=== PATIENT | female | born 1970 | race Caucasian/White ===

== ENCOUNTER 2016-12-18 10:04 | Day surgery (SDC) | payer OTHER ==
--- NOTE | 2016-12-14 09:07 | PDGENHP ---
History and Physical - Chief Complaint Right Hip Pain - History of Present Illness 1. Bilateral~Femoroacetabular impingement (MANJU) Mixed type, with~resultant labral tear, Right symptomatic HISTORY OF PRESENT ILLNESS: Aimeeis a 46 y.o.~very ~active female~who I have had the pleasure to consult on today.~I have enjoyed meeting her. She~lives in [place]. ~Aimee works as a Field Administrator. ~She~is ; she~has step children. ~Aimee enjoys hiking, cross country skiing, cycling, swimming, snow shoeing, pilates. Arabella's right~hip pain started April 2014, with little~previous complaints ~and with no~recalled trauma or injury. Patient noted right plantar wart treatment and subsequent limping as a precursor to right hip pain. ~~Aimee does not have~a known history of hip dysplasia. Presentation today is of~anterior right~hip pain. ~The hip does~wake her~at night and does not~click and catch on her. Sitting can be uncomfortable for her. Aimeedoes~report suffering from intermittent lower back pain episodes, which increases with increased sitting. Aimeehas not~participated in physical therapy and has not~tried other conservative measures. She~has not~received sufficient symptomatic improvement. Aimeehas~utilized medication for pain management, including Mobic~( prescribed). Aimeehas used medication for 2-3 weeks. Aimeedenies issues with the left hip. ~ Aimeeunderstands that she~has a hip and pelvis problem which should be researched and wishes to get a better understanding of her~hip status, followed by an establishment of a treatment strategy, hoping sheGoranwould be able to get back to her~well being active life. History: Past medical history: ~ Hypothyroid Relevant familial history: Mother HBP & Hypothyroidism Past surgical history: No. 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 I have reviewed, verified and agree with the past medical, surgical, family and social history. Current Medications:~has a current medication list which includes the following prescription(s): cytomel. ALLERGIES:~is allergic to contrast and sulfa (sulfonamide antibiotics). Objective: Physical Examination: Aimeeis 5 feet 4~inches tall and weighs~125~Lbs. Aimeeis AAO x3; she~is well-nourished, in NAD. Skin is warm and dry. ~Breathing is non-labored. ~CV with RRR by pulse. Abdomen is soft, NTND. ~Currently, she~walks with a abnormal slightly antalgic~gait. She~has~left~1 cm short leg length discrepancy and presents~with mild~signs of joint laxity.~Beighton Score: ~2. ~~She~is fit looking. ~~ Trendelenburg sign is negative and proprioception~is normal, both~sides. Lower spine examination is negative~for sciatic or femoral nerve irritation with negative~SLR &~femoral stretch tests. Range of motion of the spine is normal~for flexion, extension, and rotations, with~associated mild pain while performing extension. SIJs examination is normal with normal~DEANNA in relation and local tenderness. Strength, Sensation and pulses are normal - bilaterally Ankles and knees exams are normal~and no~mal-alignment is evident. Hip ROM (degrees): ER At 90~hip FL IR At 90~hip FL IR Neutral hip ER Neutral hip AB AD FL EX R 40 0 30 30 45 15 105 5 L 45 10 35 25 45 10 105 5 Specific hip and pelvis tests: Quadrant DEANNA Roll Add. Longus R +++ +++ +++ + (Capsule & IP TTP) L + + Negative Negative Glut. Med ITB Pos. Imp R Negative Negative Negative L Negative Negative Negative Squeeze test measured weak. Bony Symphysis pubis is pain free to touch while concentric activity of the rectus abdominis, does not~produce pain at its insertion. Ilio Psos specific tests are negative. Greater trochanteric burse is pain free on both hips. Piriformis tests: FAIR is negative, with no local signs of neuritis related to sciatic nerve. Thigh circumference is symmetric with no evidence for muscle atrophy on both~ sides. Hamstrings tests are negative~functional contraction and negative~tendinopathy Imaging: Radiology studies which I~have personally reviewed, analyzed and measured are below: XR: AP of the hip and pelvis: Performed in a good~technique Coccyx to pubic symphysis distance 2 cm. 3 caudal Specific measurements show: NSA~ Lat. Cam LCE Lat. Pincer C.Over~sign Sharp's angle Head~Coverage % Sourcil~Angle ATDmm R N + 34 - ~~- 41 85 1 N L N + 33 - - 43 86 3 N [place]~Lines are preserved. No Pathological signs are seen in the Symphysis Pubis. No Pathological signs are seen at the Ischial~tuberosity. ~~~~~~~~~~~~~ Pos. wall sign Sup. Lat. OA Joint Space-WBZ Joint Space-Medial NAD R Negative Negative 4.1 mm 4.0 mm 17 mm L Negative Negative 3.5 mm 3.7 mm 16.3 mm Sclerosis ~~Dysplasia Cysts ISS Comments R Negative Negative + Negative L Negative Negative Negative Negative X Table lateral: Anterior cam lesion is seen Alpha angle: Quintana lateral Right 73 Left 60 MRI shows: Right femoral neck pitting cyst with good cartilage thickness and labral qaulity. Impression and plan:~ Aimeeis a 46 y.o.~active female~suffering from symptomatic right hip pain due to Right~Femoroacetabular impingement (MANJU) Cam type~causing significant disability to her~and altering~her~sport and life activities. Physical examination, imaging, and her~story correspond with the diagnosis mentioned above. I have explained the diagnosis and its significance to Aimeeand we have discussed the various possible treatment options~and their implications~with her. These include proceeding with conservative treatment while continuing to modify her~activities to avoid aggravating the hip further, resuming anti pain medications or intra articular injections (when needed) which can give temporary relief and a hip arthroscopy aiming to address the above pathology. Aimeewill review the info presented. Should Aimeedecide that surgery is the best option, prior to hip arthroscopy she~will need to obtain a CT with 3D recon in order to help us pre plan an accurate and optimal volume and location of bony resection. Aimeeis happy with this plan. I have also supplied her~with handouts, outlining the expected surgical treatment and rehab involved. I wish Aimeeall the best, ~~ Vicki Lam ATC~ [place] MD Arabella History Information - Allergies/Home Medication List Allergies/Adverse Reactions: morphine Allergy (Verified 11/23/16 13:49) Sulfa (Sulfonamide Antibiotics) Allergy (Verified 08/11/15 15:09) Rash injected dye contrast Allergy (Uncoded 08/11/15 15:09) Rash Home Medications: Levothyroxine [Synthroid] 88 mcg PO DAILY06 08/27/15 [Last Taken 08/27/15 04:45] Liothyronine Sodium [Cytomel 25 mcg (RX)] 25 mcg PO DAILY06 08/27/15 [Last Taken 08/27/15 04:45] Herbal Drugs DAILY 11/23/16 [Last Taken Unknown] I have personally reviewed and updated: medical history - Social History Smoking Status: Never smoked Review of Systems Review of Systems: Physical Exam Physical Exam:
[2016-12-18] MEDS ORDERED: PREGABALIN 150 MG CAP PO ONE (10:54)
[2016-12-18] MEDS ORDERED: ACETAMINOPHEN 500 MG TAB PO ONE (10:54)
[2016-12-18] MEDS ORDERED: ceFAZolin 2 GM/DEXTROSE 100 ML IV ONE (10:54)
[2016-12-18] MEDS ORDERED: LIDOCAINE 1% 2 ML INJ ID PRN (10:59)
[2016-12-18] MEDS ORDERED: PROPOFOL/EMULSION 500 MG/50 ML BOTTLE IV ONE (10:59)
[2016-12-18] MEDS ORDERED: PROPOFOL 200 MG/20 ML VIAL ONE (10:59)
[2016-12-18] MEDS ORDERED: LR 1,000 ML IV ONE (10:59)
[2016-12-18] MEDS ORDERED: MIDAZOLAM 2 MG/2 ML VIAL IVP ONE (11:01)
[2016-12-18] MEDS ORDERED: HYDROmorphONE/DILAUDID 2 MG/ML INJ ONE (11:03)
--- NOTE | 2016-12-18 11:03 | PDANEPAE ---
ANE History of Present Illness left hip arthroscopy, femoroplasty ANE Past Medical History - Cardiovascular History Hx Hypertension: No Hx Arrhythmias: No Hx Chest Pain: No Hx Coronary Artery / Peripheral Vascular Disease: No Hx CHF / Valvular Disease: No Hx Palpitations: No - Pulmonary History Hx COPD: No Hx Asthma/Reactive Airway Disease: No Hx Recent Upper Respiratory Infection: No Hx Oxygen in Use at Home: No Hx Sleep Apnea: No Sleep Apnea Screening Result - Last Documented: Negative - Neurologic History Hx Cerebrovascular Accident: No Hx Seizures: No Hx Dementia: No - Endocrine History Hx Diabetes: No Endocrine History Comment: HYPOTHYROID - Renal History Hx Renal Disorders: No - Liver History Hx Hepatic Disorders: No - Neurological & Psychiatric Hx Hx Neurological and Psychiatric Disorders: Yes Neurological / Psychiatric History Comment: DEPRESSION - Cancer History Hx Cancer: No - Congenital Disorder History Hx Congenital Disorders: No - GI History Hx Gastrointestinal Disorders: No - Other Health History Other Health History: LABRAL TEAR. L HIP PAIN - Chronic Pain History Chronic Pain: Yes (L HIP) - Surgical History Prior Surgeries: RT HIP SCOPE 08/2015. HYSTEROSCOPY 05/11/15. LT WRIST AND FOREARM NERVE DECOMPRESSION 2012. LT KNEE SCOPES. REMVL BENIGN TUMOR LT FEMUR ANE Review of Systems Review of systems is: negative Review of Systems: - Exercise capacity METS (RN): 4 METS ANE Patient History - Allergies Allergies/Adverse Reactions: morphine Allergy (Verified 11/23/16 13:49) Sulfa (Sulfonamide Antibiotics) Allergy (Verified 08/11/15 15:09) Rash injected dye contrast Allergy (Uncoded 08/11/15 15:09) Rash - Home Medications Home medications: home medication list seen and reviewed Home Medications: Levothyroxine [Synthroid] 88 mcg PO DAILY06 08/27/15 [Last Taken 08/27/15 04:45] Liothyronine Sodium [Cytomel 25 mcg (RX)] 25 mcg PO DAILY06 08/27/15 [Last Taken 08/27/15 04:45] Herbal Drugs DAILY 11/23/16 [Last Taken Unknown] - Anes Hx Anes Hx: post operative nausea - Smoking Hx Smoking Status: Never smoked ANE Labs/Vital Signs - Vital Signs Height: 162.56 cm Weight: 56.699 kg ANE Physical Exam - Airway Neck exam: FROM Mallampati Score: Class 1 Mouth exam: normal dental/mouth exam - Pulmonary Pulmonary: no respiratory distress - Cardiovascular Cardiovascular: regular rate and rhythym - ASA Status ASA Status: II ANE Anesthesia Plan Anesthesia Plan: general endotracheal anesthesia
[2016-12-18] MEDS ORDERED: ROCURONIUM 50 MG/5 ML VIAL ONE (11:04)
[2016-12-18] MEDS ORDERED: LIDOCAINE 2% 5 ML SDV ONE (11:04)
[2016-12-18] MEDS ORDERED: DEXAMETHASONE 4 MG/ML VIAL ONE (11:04)
[2016-12-18] MEDS ORDERED: BUPIVACAINE 0.25% 30 ML SDV ONE (11:11)
[2016-12-18] MEDS ORDERED: SCOPOLAMINE HYDROBROMIDE 1 MG/3 DAYS PATCH TD SCH (11:15)
[2016-12-18] MEDS ORDERED: ONDANSETRON 4 MG/2 ML VIAL ONE (12:17)
[2016-12-18] MEDS ORDERED: SUGAMMADEX SODIUM 200 MG/2 ML VIAL IVP ONE (12:17)
[2016-12-18] MEDS ORDERED: OXYCODONE/APAP 5/325 TAB PO PRN (13:22)
[2016-12-18] MEDS ORDERED: fentaNYL 100 MCG/2 ML INJ IVP PRN (13:22)
[2016-12-18] MEDS ORDERED: PROMETHAZINE HCL 25 MG/ML INJ IVP PRN (13:22)
[2016-12-18] MEDS ORDERED: ONDANSETRON 4 MG/2 ML VIAL IVP PRN (13:22)
[2016-12-18] MEDS ORDERED: HYDROmorphONE/DILAUDID 1 MG/ML INJ IVP PRN (13:22)
[2016-12-18] MEDS ORDERED: ACETAMINOPHEN 500 MG TAB PO PRN (13:22)
[2016-12-18] MEDS ORDERED: NALOXONE HCL 0.4 MG/ML INJ IVP PRN (13:22)
[2016-12-18] MEDS ORDERED: LR 500 ML IV PRN (13:22)
[2016-12-18] MEDS ORDERED: METOCLOPRAMIDE 10 MG/2 ML VIAL IVP PRN (13:22)
--- NOTE | 2016-12-18 14:42 | POSTANESTH ---
Post Anesthetic Evaluation Cardiovascular Status: Normal, Stable Respiratory Status: Normal, Stable Level of Consciousness/Mental Status: Can Participate in Eval Pain Control: Adequate, Prn Tx Ordered Nausea/Vomiting Control: Adequate, Prn Tx Ordered Complications Possibly Related to Anesthesia: None Noted
[2016-12-18 14:49] VITALS: PULSE 100
[2016-12-18 15:54] VITALS: RESP 17; TEMP 97
[2016-12-18 17:42] VITALS: BP 122/80
[2016-12-18 17:44] VITALS: O2SAT 95
[2016-12-19] MEDS ORDERED: PATCH REMOVAL 1 EA PATCH TD ONE (11:01)
== END 2016-12-18 17:40 | disposition home or self-care (01) ==
LOC: FSGY 10:04
PROVIDERS: ATTEND Orthopaedic Surgery Sports Medicine
PROC: 0SBB4ZZ Excision of Left Hip Joint, Percutaneous Endoscopic Approach (ICD-10-PCS; principal; 2016-12-18 11:45)
PROC: 0SQB4ZZ Repair Left Hip Joint, Percutaneous Endoscopic Approach (ICD-10-PCS; principal; 2016-12-18 11:45)
DX: M25.852 Other specified joint disorders, left hip (principal); S73.192A Other sprain of left hip, initial encounter; M94.252 Chondromalacia, left hip; M16.12 Unilateral primary osteoarthritis, left hip; X58.XXXA Exposure to other specified factors, initial encounter; Z88.2 Allergy status to sulfonamides; Z88.5 Allergy status to narcotic agent
CPT/HCPCS: 29914; 29916; 76001; C1769; C1713; J0171; J0690; J1100; J1170; J2250; J2405; J2704

== ENCOUNTER → 2017-01-18 | Outpatient (CLI) | payer OTHER | LOC: FIMAGING 13:06 | PROVIDERS: ATTEND Obstetrics & Gynecology | DX: Z12.31 Encounter for screening mammogram for malignant neoplasm of breast (principal) | CPT/HCPCS: G0202 ==

== ENCOUNTER → 2018-01-22 | Outpatient (CLI) | payer OTHER | LOC: FIMAGING 10:56 | PROVIDERS: ATTEND Obstetrics & Gynecology | DX: Z12.31 Encounter for screening mammogram for malignant neoplasm of breast (principal) ==

== ENCOUNTER 2018-06-25 09:55 | Day surgery (SDC) | payer OTHER ==
--- NOTE | 2018-06-24 21:09 | PDGENHP ---
History and Physical - Chief Complaint LEFT HIP PAIN - History of Present Illness 1. History of Right Hip Arthroscopy 2. History of Left Hip Arthroscopy 3. Left Hip Pain HISTORY OF PRESENT ILLNESS: Aimeeis a 45 y.o.~very ~active female~who I have had the pleasure to consult on today.~I have enjoyed meeting her. She~lives in [place]. ~Aimee works as a Digital Analyst. ~She~is ; she~has step children. ~Aimee enjoys hiking, cross country skiing, cycling, swimming, snow shoeing, pilates. Arabella's hip pain started April 2014, with little~previous complaints~and with no~recalled trauma or injury. Patient noted right plantar wart treatment and subsequent limping as a precursor to right hip pain. ~~Aimeedoes not have~a known history of hip dysplasia. She underwent bilateral hip arthroscopies and has had persistent Left Hip Pain since her surgery. Presentation today is of~anterior LEFT~hip pain. ~The hip does~wake her~at night and does not~click and catch on her. Sitting can be uncomfortable for her. Aimeedoes~report suffering from intermittent lower back pain episodes, which increases with increased sitting. Aimeehas not~participated in physical therapy and has not~tried other conservative measures. She~has not~received sufficient symptomatic improvement. Aimeehas~utilized medication for pain management, including Mobic~( prescribed). Aimeehas used medication for 2-3 weeks. Aimeedenies issues with the left hip. ~ Aimeeunderstands that she~has a hip and pelvis problem which should be researched and wishes to get a better understanding of her~hip status, followed by an establishment of a treatment strategy, hoping sheGoranwould be able to get back to her~well being active life. History: Past medical history: ~ Hypothyroid Relevant familial history: Mother HBP & Hypothyroidism Past surgical history: No. 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 Right Hip Arthroscopy 5. Left Hip Arthroscopy Aimeedenies problematic issues with general anesthesia in the past. I have reviewed, verified and agree with the past medical, surgical, family and social history. Current Medications:~has a current medication list which includes the following prescription(s): cytomel. ALLERGIES:~is allergic to contrast and sulfa (sulfonamide antibiotics). Objective: Physical Examination: Aimeeis 5 feet 4~inches tall and weighs~125~Lbs. Aimeeis AAO x3; she~is well-nourished, in NAD. Skin is warm and dry. ~Breathing is non-labored. ~CV with RRR by pulse. Abdomen is soft, NTND. ~Currently, she~walks with a abnormal slightly antalgic~gait. She~has~left~1 cm short leg length discrepancy and presents~with mild~signs of joint laxity.~Beighton Score: ~2. ~~She~is fit looking. ~~ Trendelenburg sign is negative and proprioception~is normal, both~sides. Lower spine examination is negative~for sciatic or femoral nerve irritation with negative~SLR &~femoral stretch tests. Range of motion of the spine is normal~for flexion, extension, and rotations, with~associated mild pain while performing extension. SIJs examination is normal with normal~DEANNA in relation and local tenderness. Strength, Sensation and pulses are normal - bilaterally Ankles and knees exams are normal~and no~mal-alignment is evident. Hip ROM (degrees): ER At 90~hip FL IR At 90~hip FL IR Neutral hip ER Neutral hip AB AD FL EX R 40 0 30 30 45 15 105 5 L 45 10 35 25 45 10 105 5 Specific hip and pelvis tests: Quadrant DEANNA Roll Add. Longus R +++ +++ +++ + (Capsule & IP TTP) L + + Negative Negative Glut. Med ITB Pos. Imp R Negative Negative Negative L Negative Negative Negative Squeeze test measured weak. Bony Symphysis pubis is pain free to touch while concentric activity of the rectus abdominis, does not~produce pain at its insertion. Ilio Psos specific tests are negative. Greater trochanteric burse is pain free on both hips. Piriformis tests: FAIR is negative, with no local signs of neuritis related to sciatic nerve. Thigh circumference is symmetric with no evidence for muscle atrophy on both~ sides. Hamstrings tests are negative~functional contraction and negative~tendinopathy Imaging: Radiology studies which I~have personally reviewed, analyzed and measured are below: XR: AP of the hip and pelvis: Performed in a good~technique Coccyx to pubic symphysis distance 2 cm. 3 caudal Specific measurements show: NSA~ Lat. Cam LCE Lat. Pincer C.Over~sign Sharp's angle Head~Coverage % Sourcil~Angle ATDmm R N + 34 - ~~- 41 85 1 N L N + 33 - - 43 86 3 N [place]~Lines are preserved. No Pathological signs are seen in the Symphysis Pubis. No Pathological signs are seen at the Ischial~tuberosity. ~~~~~~~~~~~~~ Pos. wall sign Sup. Lat. OA Joint Space-WBZ Joint Space-Medial NAD R Negative Negative 4.1 mm 4.0 mm 17 mm L Negative Negative 3.5 mm 3.7 mm 16.3 mm Sclerosis ~~Dysplasia Cysts ISS Comments R Negative Negative + Negative L Negative Negative Negative Negative X Table lateral: Anterior cam lesion is seen Alpha angle: Quintana lateral Right 73 Left 60 MRI shows: Right femoral neck pitting cyst with good cartilage thickness and labral qaulity. Impression and plan:~ Aimeeis a 48 y.o.~active female~suffering from symptomatic right hip pain due to Right~Femoroacetabular impingement (MANJU) Cam type~causing significant disability to her~and altering~her~sport and life activities. Physical examination, imaging, and her~story correspond with the diagnosis mentioned above. I have explained the diagnosis and its significance to Aimeeand we have discussed the various possible treatment options~and their implications~with her. These include proceeding with conservative treatment while continuing to modify her~activities to avoid aggravating the hip further, resuming anti pain medications or intra articular injections (when needed) which can give temporary relief and a hip arthroscopy aiming to address the above pathology. Aimeewill review the info presented. Should Aimeedecide that surgery is the best option, prior to hip arthroscopy she~will need to obtain a CT with 3D recon in order to help us pre plan an accurate and optimal volume and location of bony resection. Aimeeis happy with this plan. I have also supplied her~with handouts, outlining the expected surgical treatment and rehab involved. I wish Arabella~all the best, ~~ Vicki Lam, ATC~ Jaydon Bell MD History Information - Allergies/Home Medication List Allergies/Adverse Reactions: morphine Allergy (Verified 06/19/18 11:48) Other-Enter Comments Sulfa (Sulfonamide Antibiotics) Allergy (Verified 06/19/18 11:48) Rash injected dye contrast Allergy (Uncoded 06/19/18 11:48) Rash Home Medications: Levothyroxine [Synthroid 88 mcg (*)] 08/27/15 [Last Taken 12/18/16 06:00] Liothyronine Sodium [Cytomel 25 mcg (*)] 08/27/15 [Last Taken 12/18/16 06:00] Herbal Drugs 11/23/16 [Last Taken 12/09/16] I have personally reviewed and updated: medical history - Social History Smoking Status: Never smoked Review of Systems Review of Systems: Physical Exam Physical Exam:
[2018-06-25] MEDS ORDERED: ceFAZolin 2 GM/DEXTROSE 100 ML IV ONE (10:03)
[2018-06-25] MEDS ORDERED: ACETAMINOPHEN 500 MG TAB PO ONE (10:03)
[2018-06-25] MEDS ORDERED: PREGABALIN 150 MG CAP PO ONE (10:03)
[2018-06-25] MEDS ORDERED: LR 1,000 ML IV ONE (10:07)
[2018-06-25] MEDS ORDERED: BUPIVACAINE/EPI 0.25% 30 ML SDV ONE ×2 (10:08→10:37)
[2018-06-25] MEDS ORDERED: EPINEPHrine 30 MG/30 ML MDV (0.1 MG/0.1 ML) ONE (10:37)
[2018-06-25] MEDS ORDERED: ACETAMINOPHEN 500 MG TAB ONE (10:52)
[2018-06-25] MEDS ORDERED: MIDAZOLAM 2 MG/2 ML VIAL IVP ONE (11:05)
--- NOTE | 2018-06-25 11:05 | PDANEPAE ---
ANE History of Present Illness left hip pain ANE Past Medical History - Cardiovascular History Hx Hypertension: No Hx Arrhythmias: No Hx Chest Pain: No Hx Coronary Artery / Peripheral Vascular Disease: No Hx CHF / Valvular Disease: No Hx Palpitations: No Cardiovascular History Comment: mitral valve prolapse - Pulmonary History Hx COPD: No Hx Asthma/Reactive Airway Disease: No Hx Recent Upper Respiratory Infection: No Hx Oxygen in Use at Home: No Hx Sleep Apnea: No Sleep Apnea Screening Result - Last Documented: Negative - Neurologic History Hx Cerebrovascular Accident: No Hx Seizures: No Hx Dementia: No - Endocrine History Hx Diabetes: No Hypothyroid: Yes Hyperthyroid: No Obesity: no Endocrine History Comment: HYPOTHYROID - Renal History Hx Renal Disorders: No - Liver History Hx Hepatic Disorders: No - Neurological & Psychiatric Hx Hx Neurological and Psychiatric Disorders: Yes Neurological / Psychiatric History Comment: DEPRESSION. nerve problems to wrist and hands - Cancer History Hx Cancer: No - Congenital Disorder History Hx Congenital Disorders: No - GI History GERD: no Hx Gastrointestinal Disorders: No - Other Health History Other Health History: LABRAL TEAR. L HIP PAIN - Chronic Pain History Chronic Pain: Yes (neck,shoulder) - Surgical History Prior Surgeries: RT HIP SCOPE 08/2015. HYSTEROSCOPY 05/11/15. LT WRIST AND FOREARM NERVE DECOMPRESSION 2012. LT KNEE SCOPES. REMVL BENIGN TUMOR LT FEMUR ANE Review of Systems Review of systems is: negative Review of Systems: - Exercise capacity Exercise capacity: >=4 METS METS (RN): 4 METS ANE Patient History - Allergies Allergies/Adverse Reactions: morphine Allergy (Verified 06/19/18 11:48) Other-Enter Comments Sulfa (Sulfonamide Antibiotics) Allergy (Verified 06/19/18 11:48) Rash injected dye contrast Allergy (Uncoded 06/19/18 11:48) Rash - Home Medications Home medications: home medication list seen and reviewed Home Medications: Levothyroxine [Synthroid 88 mcg (*)] 08/27/15 [Last Taken 06/25/18 06:30] Liothyronine Sodium [Cytomel 25 mcg (*)] 08/27/15 [Last Taken 06/25/18 06:30] Herbal Drugs 11/23/16 [Last Taken 06/18/18] - NPO status NPO Status: no food or drink >8 hours NPO Since - Liquids (Date): 06/25/18 NPO Since - Liquids (Time): 08:30 NPO Since - Solids (Date): 06/24/18 NPO Since - Solids (Time): 21:30 - Anes Hx Anes Hx: post operative nausea and vomiting - Smoking Hx Smoking Status: Never smoked - Family Anes Hx Family Hx Anesthesia Complications: none ANE Labs/Vital Signs - Vital Signs Vital Signs: reviewed preoperatively; see RN documention for details Blood Pressure: 122/85 Heart Rate: 67 Respiratory Rate: 16 O2 Sat (%): 99 Height: 162.56 cm Weight: 56.245 kg ANE Physical Exam - Airway Neck exam: FROM Mallampati Score: Class 1 Mouth exam: normal dental/mouth exam - Pulmonary Pulmonary: no respiratory distress - Cardiovascular Cardiovascular: regular rate and rhythym - ASA Status ASA Status: II ANE Anesthesia Plan Anesthesia Plan: general endotracheal anesthesia Total IV Anesthesia: Yes
[2018-06-25] MEDS ORDERED: SCOPOLAMINE HYDROBROMIDE 1 MG/3 DAYS PATCH TD ONE ×2 (11:06→11:10)
[2018-06-25] MEDS ORDERED: MIDAZOLAM 2 MG/2 ML VIAL ONE (11:09)
[2018-06-25] MEDS ORDERED: fentaNYL 100 MCG/2 ML INJ ONE ×2 (11:15→13:34)
[2018-06-25] MEDS ORDERED: PROPOFOL 200 MG/20 ML VIAL ONE ×2 (11:15→12:48)
[2018-06-25] MEDS ORDERED: PROPOFOL/EMULSION 500 MG/50 ML BOTTLE IV ONE ×2 (11:15→11:39)
[2018-06-25] MEDS ORDERED: ROCURONIUM 50 MG/5 ML VIAL ONE (11:18)
[2018-06-25] MEDS ORDERED: LIDOCAINE 2% 5 ML SDV ONE (11:19)
[2018-06-25] MEDS ORDERED: DEXAMETHASONE 4 MG/ML VIAL ONE ×2 (11:38→11:39)
[2018-06-25] MEDS ORDERED: ONDANSETRON 4 MG/2 ML VIAL ONE ×2 (11:39→15:12)
[2018-06-25] MEDS ORDERED: DIAZEPAM 5 MG/ML 1 ML SYR IVP PRN (12:07)
[2018-06-25] MEDS ORDERED: LR 500 ML IV PRN (12:07)
[2018-06-25] MEDS ORDERED: MEPERIDINE 25 MG/0.5 ML AMP IVP PRN (12:07)
[2018-06-25] MEDS ORDERED: PHENYLEPHRINE HCL 100 MCG/ML SYR IVP PRN (12:07)
[2018-06-25] MEDS ORDERED: METOCLOPRAMIDE 10 MG/2 ML VIAL IVP PRN (12:07)
[2018-06-25] MEDS ORDERED: ACETAMINOPHEN 500 MG TAB PO PRN (12:07)
[2018-06-25] MEDS ORDERED: LABETALOL HCL 5 MG/ML 20 ML MDV IVP PRN (12:07)
[2018-06-25] MEDS ORDERED: NALOXONE HCL 0.4 MG/ML INJ IVP PRN (12:07)
[2018-06-25] MEDS ORDERED: DEXAMETHASONE 4 MG/ML VIAL IVP PRN (12:07)
[2018-06-25] MEDS ORDERED: HYDROmorphONE/DILAUDID 1 MG/ML INJ IVP PRN (12:07)
[2018-06-25] MEDS ORDERED: oxyCODONE IR 5 MG TAB PO PRN (12:07)
[2018-06-25] MEDS ORDERED: PROMETHAZINE HCL 25 MG/ML INJ IVP PRN (12:07)
[2018-06-25] MEDS ORDERED: ONDANSETRON 4 MG/2 ML VIAL IVP PRN (12:07)
[2018-06-25] MEDS ORDERED: ALBUTEROL 3 ML DEYVIAL IH PRN (12:07)
[2018-06-25] MEDS ORDERED: fentaNYL 100 MCG/2 ML INJ IVP PRN (12:07)
[2018-06-25] MEDS ORDERED: KETOROLAC 30 MG/1 ML SDV ONE (12:52)
--- NOTE | 2018-06-25 13:09 | POSTOPPROG ---
Post Op Note Date of Operation: 06/25/18 Surgeon: Jaydon Bell Respite Provider: Dr. Alfaro Anesthesia: GET(General Endotracheal) Pre-op Diagnosis: LEFT HIP PAIN Post-op Diagnosis: LEFT HIP PAIN Procedure: Left Hip Arthroscopy Inf/Abcess present in the surg proc area at time of surgery?: No
[2018-06-25] MEDS ORDERED: oxyCODONE IR 5 MG TAB ONE (15:12)
[2018-06-25 15:33] VITALS: BP 118/75
[2018-06-26] MEDS ORDERED: PATCH REMOVAL 1 EA PATCH TD ONE (11:07)
== END 2018-06-25 15:40 | disposition home or self-care (01) ==
LOC: FSGY 09:55
PROVIDERS: ATTEND Orthopaedic Surgery Sports Medicine
PROC: 0SQB4ZZ Repair Left Hip Joint, Percutaneous Endoscopic Approach (ICD-10-PCS; principal; 2018-06-25 11:30)
DX: M25.852 Other specified joint disorders, left hip (principal); M25.552 Pain in left hip
CPT/HCPCS: C1713; J0171; J0690; J1100; J1885; J2250; J2405; J2704; J3010